=== PATIENT | male | born 1975 | race American Indian/Alaskan Native ===

== ENCOUNTER 2021-07-13 10:06 | Emergency (ER) | payer MEDICARE ==
--- NOTE | 2021-07-13 11:02 | XRay Report ---
LEFT ANKLE 3 VIEWS INDICATION: fall. COMPARISON: None. IMPRESSION: An oblique mildly comminuted fracture is identified in the distal fibular shaft just abo ve the ankle joint. Mild lateral subluxation of the talus with respect to the distal tibia is demonst rated. There is also a vertical fracture in the posterior, distal tibia seen only on the lateral view . The remaining bony structures are intact. There is severe soft tissue swelling. Signer Name: Shady Figueroa Jr, MD Signed: 07/13/2021 10:58 AM Workstation Name: [id number]
[2021-07-13 12:22] VITALS: BP 149/99
[2021-07-13] MEDS ORDERED: HYDROcodone/ACETAMINOPHEN 5-325 MG TAB PO ONE (12:24)
--- NOTE | 2021-07-13 12:24 | Emergency Department Report ---
ED Lower Extremity HPI - General Chief Complaint: Extremity Injury, Lower Stated Complaint: FOOT/ANKLE PAIN Time Seen by Provider: 07/13/21 12:15 Source: patient Mode of arrival: Ambulatory Limitations: No Limitations - History of Present Illness Initial Comments: 46-year-old male presents to the ER today with complaints of left ankle pain. Patient states that he was walking down the heel early this morning around 10 AM when he actually stepped on what appeared to be an acorn causing him to lose his balance and fall. Patient states that he twisted his left ankle in the process of falling. Since then he has been having pain in his left ankle and left lower leg with associated swelling. He reports increased pain with weightbearing, ambulation and movement of the ankle. He denies any prior issues with his left ankle or surgery to his left ankle in the past. He has not taken anything for pain since the injury occurred. MD Complaint: ankle injury -: This morning (Around 10 AM) - Related Data Previous Rx's Medication Instructions Recorded Last Taken Type HYDROcodone/APAP 7.5-325 [Reklaw 1 each PO Q6HR PRN #12 tablet 07/13/21 Unknown Rx 7.5/325] Ibuprofen [Motrin] 600 mg PO Q8H PRN #30 tablet 07/13/21 Unknown Rx Allergies Allergy/AdvReac Type Severity Reaction Status Date / Time No Known Allergies Allergy Verified 07/13/21 10:21 ED Review of Systems ROS: Stated complaint: FOOT/ANKLE PAIN Other details as noted in HPI Comment: All other systems reviewed and negative Constitutional: denies: chills, diaphoresis, fever, malaise, weakness Eyes: denies: eye pain, eye discharge, vision change ENT: denies: ear pain, throat pain, dental pain, hearing loss, epistaxis, congestion Respiratory: denies: cough, shortness of breath, SOB with exertion, SOB at rest, stridor, wheezing Cardiovascular: denies: chest pain, palpitations Gastrointestinal: denies: abdominal pain, nausea, vomiting, diarrhea, constipation, hematemesis, melena, hematochezia Musculoskeletal: joint swelling, arthralgia Skin: denies: rash, lesions Neurological: abnormal gait. denies: headache, weakness, paresthesias Psychiatric: denies: anxiety, depression, auditory hallucinations, visual hallucinations, homicidal thoughts, suicidal thoughts Hematological/Lymphatic: denies: easy bleeding, easy bruising ED Past Medical Hx - Medications Home Medications: Home Medications Medication Instructions Recorded Confirmed Last Taken Type HYDROcodone/APAP 7.5-325 [R[place] 1 each PO Q6HR PRN #12 tablet 07/13/21 Unknown Rx 7.5/325] Ibuprofen [Motrin] 600 mg PO Q8H PRN #30 tablet 07/13/21 Unknown Rx ED Physical Exam - General Limitations: No Limitations General appearance: alert, in distress (mild secondary to pain ), obese - Head Head exam: Present: atraumatic, normocephalic, normal inspection - Eye Eye exam: Present: normal appearance, PERRL, EOMI Pupils: Present: normal accommodation - Neck Neck exam: Present: normal inspection, full ROM - Respiratory Respiratory exam: Present: normal lung sounds bilaterally. Absent: respiratory distress, wheezes, rales, rhonchi - Cardiovascular Cardiovascular Exam: Present: regular rate, normal rhythm, normal heart sounds - Expanded Lower Extremity Exam Left Ankle exam: Present: tenderness (Severe tenderness to palpation from the distal aspect of the left lower leg down into the ankle around the lateral and medial malleolus), swelling (Mild swelling noted to the distal aspect of the left lower leg and ankle.). Absent: full ROM (Range of motion decreased due to pain), abrasion, laceration, ecchymosis, deformity, crepidus, dislocation, erythema Foot/Toe exam: Present: normal inspection. Absent: tenderness, swelling, abrasion, laceration, ecchymosis, deformity, tenderness at base of 5th metatarsal Neuro vascular tendon exam: Present: no vascular compromise. Absent: pulse deficit, abnormal cap refill, sensory deficit Gait: Positive: not tested/not observed - Neurological Exam Neurological exam: Present: alert, oriented X3, CN II-XII intact - Psychiatric Psychiatric exam: Present: normal affect, normal mood ED Course Vital Signs 07/13/21 10:22 Temperature 97.9 F Pulse Rate 77 Respiratory 20 Rate Blood Pressure 149/99 O2 Sat by Pulse 99 Oximetry ED Lower Extremity MDM - Radiology Data Radiology results: report reviewed Patient: HARESH EDEN MR#: [id number] : 1975 Acct:[id number] Age/Sex: 46 / M ADM Date: 07/13/21 Loc: ED Attending Dr: Ordering Physician: DAX ASHTON Date of Service: 07/13/21 Procedure(s): XR tibia fibula 2V LT Accession Number(s): [id number] cc: DAX ASHTON Fluoro Time In Minutes: LEFT TIBIA-FIBULA 2 VIEW(S) INDICATION / CLINICAL INFORMATION: fall/injury COMPARISON: Left ankle radiographs from earlier in the day FINDINGS: BONES / JOINT(S): Redemonstrated comminuted distal left fibular fracture. No significant arthritis. SOFT TISSUES: No significant abnormality. ADDITIONAL FINDINGS: None. Signer Name: Ramo Murray DO Signed: 07/13/2021 1:00 PM Workstation Name: [id number] Transcribed By: NS Dictated By: RAMO MURRAY DO Electronically Authenticated By: RAMO MURRAY DO Signed Date/Time: 07/13/21 1300 DD/ 1257 TD/TT: Patient: HARESH EDEN MR#: [id number] : 1975 Acct:[id number] Age/Sex: 46 / M ADM Date: 07/13/21 Loc: ED Attending Dr: Ordering Physician: HARMONY SERNA MD Date of Service: 07/13/21 Procedure(s): XR ankle 3+V LT Accession Number(s): [id number] cc: HARMONY SERNA MD Fluoro Time In Minutes: LEFT ANKLE 3 VIEWS INDICATION: fall. COMPARISON: None. IMPRESSION: An oblique mildly comminuted fracture is identified in the distal fibular shaft just above the ankle joint. Mild lateral subluxation of the talus with respect to the distal tibia is demonstrated. There is also a vertical fracture in the posterior, distal tibia seen only on the lateral view. The remaining bony structures are intact. There is severe soft tissue swelling. Signer Name: Shady Figueroa Jr, MD Signed: 07/13/2021 10:58 AM Workstation Name: [id number] Transcribed By: TTR Dictated By: SHADY FIGUEROA JR, MD Electronically Authenticated By: SHADY FIGUEROA JR, MD Signed Date/Time: 07/13/21 1058 DD/ 1056 TD/TT: - Medical Decision Making 1326: X-ray of the left ankle shows An oblique mildly comminuted fracture is identified in the distal fibular shaft just above the ankle joint. Mild lateral subluxation of the talus with respect to the distal tibia is demonstrated. There is also a vertical fracture in the posterior, distal tibia seen only on the lateral view. The remaining bony structures are intact. There is severe soft tissue swelling. LLE is neurovascularly intact currently. Dicussed results with patient. Shamir splint applied (neurovascular intact post splint placement) and given walker. Patient understands very limited weigh bearing to that leg and follow up with insurance follow up specialist listed on his discharge instructions as well as elevate his leg as often as possible. Patient stable at time of discharge. Critical care attestation.: If time is entered above; I have spent that time in minutes in the direct care of this critically ill patient, excluding procedure time. ED Disposition Clinical Impression: Left fibular fracture, Fracture of distal end of left tibia Disposition: 01 HOME / SELF CARE / HOMELESS Is pt being admited?: No Does the pt Need Aspirin: No Condition: Stable Instructions: Tibial and Fibular Fractures, Cast or Splint Care, Adult Additional Instructions: It is important that you do not remove the splint or get it wet. Elevate your leg as often as possible. Use the walker to help you ambulate. Recommend trying to not bear weight on that leg as much as possible. Take the ibuprofen and the hydrocodone as prescribed. Follow-up with Dr. Deal, insurance follow up specialist listed on your discharge instruction either this week or next week. Return to the ER if your symptoms changes or worsens in any way. Prescriptions: Ibuprofen [Motrin] 600 mg PO Q8H PRN #30 tablet PRN Reason: Pain HYDROcodone/APAP 7.5-325 [Reklaw 7.5/325] 1 each PO Q6HR PRN #12 tablet PRN Reason: Pain Referrals: CIRO DEAL MD [Staff Physician] - 3-5 Days Time of Disposition: 13:22
--- NOTE | 2021-07-13 13:04 | XRay Report ---
LEFT TIBIA-FIBULA 2 VIEW(S) INDICATION / CLINICAL INFORMATION: fall/injury COMPARISON: Left ankle radiographs from earlier in the day FINDINGS: BONES / JOINT(S): Redemonstrated comminuted distal left fibular fracture. No significant arthritis. SOFT TISSUES: No significant abnormality. ADDITIONAL FINDINGS: None. Signer Name: Ramo Arriaga DO Signed: 07/13/2021 1:00 PM Workstation Name: [email or web address] [id number]
== END 2021-07-13 15:05 | disposition home or self-care (01) ==
LOC: ED 10:06
DX: S82.402A Unspecified fracture of shaft of left fibula, initial encounter for closed fracture (principal); S82.302A Unspecified fracture of lower end of left tibia, initial encounter for closed fracture; W19.XXXA Unspecified fall, initial encounter; Y93.89 Activity, other specified; Y92.89 Other specified places as the place of occurrence of the external cause; Y99.8 Other external cause status
CPT/HCPCS: 99283